=== PATIENT | female | born 1990 | race African-American/Black ===

== ENCOUNTER → 2021-06-07 | Outpatient (CLI) | payer MEDICAID ==
[2021-06-07 18:42] LABS: HCT 36.5 % (37.2-46.3); MCHC 30.1 g/dL (32.0-37.0); MCV 89.5 fL (80.0-97.0); Mean Platelet Volume 12.1 fL (9.5-12.2); Platelet Count 215 X 10*3/uL (140-440); RBC 4.08 X 10*6/uL (4.10-5.20); RDW 14.1 % (11.5-14.5); WBC 8.68 X 10*3/uL (4.50-10.00)
[2021-06-08 00:16] LABS: African American GFR (CKD) 134.7 (60.0-200.0); Albumin 4.1 g/dL (3.8-4.9); Albumin/Globulin Ratio 1.52 (1.60-3.17); Anion Gap 11.1 mmol/L (4.00-12.00); BUN/Creat Ratio 10.29 Ratio (12.00-20.00); Blood Urea Nitrogen 7.2 mg/dL (9.0-27.0); Calcium 9.2 mg/dL (8.7-10.3); Carbon Dioxide 20.9 mmol/L (21.6-31.8); Globulin 2.7 g/dL (1.6-3.3); Non-African American GFR(CKD) 116.3 (60.0-200.0); Potassium 4.5 mmol/L (3.5-5.5); Total Bilirubin 0.2 mg/dL (0.30-1.20); Total Protein 6.8 g/dL (6.2-8.2)
[2021-06-08 06:25] LABS: HIV 2 AB Non-Reactive (Non-Reactive); HIV AB P24 Non-Reactive (Non-Reactive); HIV P24 AG Non-Reactive (Non-Reactive)
== END | disposition home or self-care (01) ==
LOC: LABWHC1 11:24
PROVIDERS: ATTEND Family Medicine
DX: Z34.90 Encounter for supervision of normal pregnancy, unspecified, unspecified trimester (principal); N92.6 Irregular menstruation, unspecified; Z3A.00 Weeks of gestation of pregnancy not specified
CPT/HCPCS: 36415; 80053; 84443; 84702; 85027; 86780; 87390